=== PATIENT | female | born 1970 ===

== ENCOUNTER 2022-06-29 13:56 | Outpatient (CLI) | payer OTHER | END 2022-06-29 14:08 | disposition home or self-care (01) | LOC: SONOGRAMA 13:56 | PROVIDERS: ATTEND Obstetrics & Gynecology Gynecology | DX: E06.3 Autoimmune thyroiditis (principal) ==

== ENCOUNTER 2023-04-11 08:44 | Outpatient (CLI) | payer OTHER | END 2023-04-11 08:45 | disposition home or self-care (01) | LOC: SONOGRAMA 08:44 | PROVIDERS: ATTEND Orthopaedic Surgery | DX: M79.641 Pain in right hand (principal) ==

== ENCOUNTER 2025-03-08 07:41 | Outpatient (CLI) | payer OTHER | END 2025-03-08 07:46 | disposition home or self-care (01) | LOC: SONOGRAMA 07:41 | DX: E04.2 Nontoxic multinodular goiter (principal) ==